=== PATIENT | female | born 2000 | race Native Hawaiian/Other Pacific Islander ===

== ENCOUNTER 2018-08-19 07:03 | Emergency (ER) | payer OTHER ==
[~2018-08-19] VITALS: Ht 160 cm; Wt 86.2 kg
[2018-08-19 07:10] VITALS: BP 127/48; TEMP 98.2
[2018-08-19 09:11] LABS: PLATELET COUNT 360 K/uL (152-353)
[2018-08-19 09:12] LABS: POTASSIUM 3.4 mmol/L (3.6-5.2)
== END 2018-08-19 10:40 | disposition home or self-care (01) ==
LOC: ED 07:03
PROVIDERS: Allergy & Immunology
DX: R10.31 Right lower quadrant pain (principal); R10.32 Left lower quadrant pain; N39.0 Urinary tract infection, site not specified
CPT/HCPCS: 36415; 80053; 81000; 85027; 87086; 87088; 96372; 99283; J1885